=== PATIENT | male | born 1995 | race Caucasian/White ===

== ENCOUNTER 2022-02-11 14:15 | Emergency (ER) | payer SELFPAY ==
[~2022-02-11] VITALS: Ht 167.6 cm; Wt 63.0 kg
[2022-02-11 14:51] VITALS: BP 115/67
[2022-02-11] MEDS ORDERED: LOPE-289 PO (15:37)
[2022-02-11] MEDS ORDERED: BEN10 PO (15:37)
[2022-02-11 16:04] VITALS: BP 115/67
== END 2022-02-11 16:05 | disposition home or self-care (01) ==
LOC: MED 14:15
DX: K52.9 Noninfective gastroenteritis and colitis, unspecified (principal); Z79.899 Other long term (current) drug therapy
CPT/HCPCS: 99283